=== PATIENT | male | born 1980 | race Two or more races ===

== ENCOUNTER 2022-02-27 10:24 | Emergency (ER) | payer SELFPAY ==
[~2022-02-27] VITALS: Ht 185.4 cm; Wt 133.1 kg
[2022-02-27 11:32] VITALS: BP 149/89
[2022-02-27] MEDS ORDERED: LORA-483 GT (12:47)
[2022-02-27] MEDS ORDERED: IBUP800T26 PO (12:47)
[2022-02-27] MEDS ORDERED: ACET-1158 PO (12:47)
== END 2022-02-27 12:55 | disposition home or self-care (01) ==
LOC: ER 10:24
DX: U07.1 COVID-19 (principal)
CPT/HCPCS: 36415; 87426; 87804